=== PATIENT | male | born 1960 | race Caucasian/White ===

== ENCOUNTER 2017-05-18 12:26 | Emergency (ER) | payer MEDICARE ==
[2017-05-18 14:29] LABS: APPEARANCE CLEAR (CLEAR); BACTERIA MODERATE /hpf (NONE SEEN); BILIRUBIN NEGATIVE (NEGATIVE); COLOR DK YELLOW (YELLOW); EPITHELIAL CELLS 0-5 /hpf (0-5); GLUCOSE NEGATIVE (NEGATIVE); KETONE MODERATE mg/dL (NEGATIVE); NITRITE NEGATIVE (NEGATIVE); PROTEIN NEGATIVE (NEGATIVE); SPECIFIC GRAVITY 1.025 (1.005-1.020); UROBILINOGEN NORMAL (NORMAL); WHITE CELLS - URINE 0-5 /hpf (0-5)
[2017-05-18 14:30] LABS: MUCUS <1+ /lpf (NONE SEEN)
[2017-05-18 15:17] LABS: BASOPHILS 0.2 % (0-2); HEMATOCRIT 43.4 % (42.0-54.0); HEMOGLOBIN 14.8 g/dL (13.5-17.5); IMMATURE GRANULOCYTES 0.4 % (0-5); LYMPHOCYTES 16.8 % (15-50); MCH 31.5 pg (26.0-34.0); MCHC 34.1 g/dL (31.0-37.0); MCV 92.3 fL (80.0-100.0); MEAN PLATELET VOLUME 10.1 fL (7.4-10.4); NEUTROPHILS 68.6 % (40-80); PLATELET COUNT 279 10x3/uL (130-400); RDW 14.8 % (11.5-14.5); WBC 8.2 10x3/uL (4.8-10.8)
[2017-05-18 16:38] LABS: ALBUMIN 3.5 g/dL (3.4-5.0); ANION GAP 8.8 mmol/L (8-16); BILIRUBIN - TOTAL 0.23 mg/dL (0.2-1.3); CARBON DIOXIDE 26.3 mmol/L (21.0-32.0); CREATININE - SERUM 1.1 mg/dL (0.6-1.3); POTASSIUM - SERUM 4.1 mmol/L (3.5-5.1); PROTEIN - SERUM 7.1 g/dL (6.4-8.2)
== END 2017-05-18 18:07 | disposition home or self-care (01) ==
LOC: D.ER 12:26
PROVIDERS: Emergency Medicine
DX: N45.2 Orchitis (principal)

== ENCOUNTER 2017-08-19 16:53 | Emergency (ER) | payer MEDICARE | END 2017-08-19 19:08 | disposition home or self-care (01) | LOC: D.ER 16:53 | DX: M54.2 Cervicalgia (principal); M54.9 Dorsalgia, unspecified; M62.838 Other muscle spasm ==

== ENCOUNTER 2017-10-14 11:27 | Emergency (ER) | payer MEDICARE, MEDICAID ==
[2017-10-14 12:36] LABS: ALBUMIN 3.7 g/dL (3.4-5.0); ALKALINE PHOSPHATASE 88 U/L (46-116); ALT (SGPT) 16 U/L (10-68); BILIRUBIN - TOTAL 0.35 mg/dL (0.2-1.3); CALC OSMOLALITY 280 mosm/kg (275-300); CALCIUM 9.7 mg/dL (8.5-10.1); CARBON DIOXIDE 22.9 mmol/L (21.0-32.0); CHLORIDE - SERUM 106 mmol/L (98-107); CREATININE - SERUM 0.9 mg/dL (0.6-1.3); GLUCOSE 110 mg/dL (74-106); POTASSIUM - SERUM 4.2 mmol/L (3.5-5.1); PROTEIN - SERUM 7.2 g/dL (6.4-8.2); SODIUM 140 mmol/L (136-145); UREA NITROGEN 14 mg/dL (7-18); eGFR NON AFRICAN AMERICAN > 90 mL/min (90-120)
[2017-10-14 12:39] LABS: BASOPHILS 0.2 % (0-2); EOSINOPHILS 0.8 % (0-7); HEMATOCRIT 43.2 % (42.0-54.0); HEMOGLOBIN 14.2 g/dL (13.5-17.5); IMMATURE GRANULOCYTES 0.2 % (0-5); LYMPHOCYTES 25.5 % (15-50); MCH 32.1 pg (26.0-34.0); MCHC 32.9 g/dL (31.0-37.0); MCV 97.5 fL (80.0-100.0); MONOCYTES 8.8 % (2-11); NEUTROPHILS 64.5 % (40-80); PLATELET COUNT 302 10x3/uL (130-400); RBC 4.43 10x6/uL (4.20-6.10); RDW 15.2 % (11.5-14.5); WBC 6.2 10x3/uL (4.8-10.8)
[2017-10-14 13:34] LABS: APPEARANCE CLEAR (CLEAR); BILIRUBIN NEGATIVE (NEGATIVE); COLOR YELLOW (YELLOW); GLUCOSE NEGATIVE (NEGATIVE); KETONE NEGATIVE (NEGATIVE); NITRITE NEGATIVE (NEGATIVE); PROTEIN NEGATIVE (NEGATIVE); SPECIFIC GRAVITY 1.025 (1.005-1.020); UROBILINOGEN NORMAL (NORMAL)
[2017-10-14 13:35] LABS: BACTERIA FEW /hpf (NONE SEEN); CALCIUM OXALATE CRYSTALS 0-5 /hpf (NONE SEEN); EPITHELIAL CELLS 0-5 /hpf (0-5); MUCUS <1+ /lpf (NONE SEEN); RED CELLS - URINE 0-5 /hpf (0-5); WHITE CELLS - URINE RARE /hpf (0-5)
== END 2017-10-14 14:37 | disposition home or self-care (01) ==
LOC: D.ER 11:27
PROVIDERS: Family Medicine
DX: R10.9 Unspecified abdominal pain (principal)

== ENCOUNTER → 2019-06-24 11:33 | Outpatient (CLI) | payer MEDICARE ==
[2019-06-24 14:02] LABS: HEMATOCRIT 27.4 % (42.0-54.0); HEMOGLOBIN 8.4 g/dL (13.5-17.5); MCH 25.4 pg (26.0-34.0); MCHC 30.7 g/dL (31.0-37.0); MCV 82.8 fL (80.0-100.0); MEAN PLATELET VOLUME 9.1 fL (7.4-10.4); PLATELET COUNT 297 10x3/uL (130-400); RBC 3.31 10x6/uL (4.20-6.10); RDW 19.4 % (11.5-14.5)
[2019-06-24 14:16] LABS: CALC OSMOLALITY 276 mosm/kg (275-300); CALCIUM 8.4 mg/dL (8.5-10.1); CARBON DIOXIDE 29.4 mmol/L (21.0-32.0); CHLORIDE - SERUM 104 mmol/L (98-107); GLUCOSE 85 mg/dL (74-106); POTASSIUM - SERUM 4.7 mmol/L (3.5-5.1); SODIUM 138 mmol/L (136-145); UREA NITROGEN 18 mg/dL (7-18); VANCOMYCIN - TROUGH 8.7 ug/mL (10.0-20.0); eGFR NON AFRICAN AMERICAN 81 mL/min (90-120)
[2019-06-24 14:36] LABS: EOSINOPHILS 7 % (0-7); LYMPHOCYTES 12 % (15-50); MONOCYTES 18 % (2-11); NEUTROPHILS 63 % (40-80); PLATELET ESTIMATE NORMAL
== END | disposition home or self-care (01) ==
LOC: D.LABREF 11:33
PROVIDERS: ATTEND Orthopaedic Surgery
DX: M00.9 Pyogenic arthritis, unspecified (principal)

== ENCOUNTER → 2019-06-27 11:50 | Outpatient (CLI) | payer MEDICARE ==
[2019-06-27 12:18] LABS: HEMATOCRIT 30.8 % (42.0-54.0); HEMOGLOBIN 9.5 g/dL (13.5-17.5); MCH 26.1 pg (26.0-34.0); MCHC 30.8 g/dL (31.0-37.0); MCV 84.6 fL (80.0-100.0); PLATELET COUNT 325 10x3/uL (130-400); RBC 3.64 10x6/uL (4.20-6.10); RDW 19.5 % (11.5-14.5); WBC 7.4 10x3/uL (4.8-10.8)
[2019-06-27 12:28] LABS: ANION GAP 9.1 mmol/L (8-16); CALCIUM 8.4 mg/dL (8.5-10.1); CARBON DIOXIDE 28.6 mmol/L (21.0-32.0); CREATININE - SERUM 1.1 mg/dL (0.6-1.3); POTASSIUM - SERUM 3.7 mmol/L (3.5-5.1); VANCOMYCIN - TROUGH 17.9 ug/mL (10.0-20.0)
[2019-06-27 12:36] LABS: BASOPHILS 1 % (0-2); EOSINOPHILS 4 % (0-7); LYMPHOCYTES 21 % (15-50); MONOCYTES 15 % (2-11); NEUTROPHILS 58 % (40-80); PLATELET ESTIMATE NORMAL
== END | disposition home or self-care (01) ==
LOC: D.LABREF 11:50
PROVIDERS: ATTEND Orthopaedic Surgery
DX: T85.79XA Infection and inflammatory reaction due to other internal prosthetic devices, implants and grafts, initial encounter (principal)

== ENCOUNTER → 2019-07-05 11:42 | Outpatient (CLI) | payer MEDICARE ==
[2019-07-05 13:09] LABS: BASOPHILS 0.6 % (0-2); EOSINOPHILS 6.6 % (0-7); HEMATOCRIT 23.5 % (42.0-54.0); IMMATURE GRANULOCYTES 0.1 % (0-5); LYMPHOCYTES 19.7 % (15-50); MCH 25.6 pg (26.0-34.0); MCHC 29.4 g/dL (31.0-37.0); MEAN PLATELET VOLUME 9.7 fL (7.4-10.4); MONOCYTES 13.9 % (2-11); NEUTROPHILS 59.1 % (40-80); PLATELET COUNT 308 10x3/uL (130-400); RDW 19.3 % (11.5-14.5); WBC 6.7 10x3/uL (4.8-10.8)
[2019-07-05 13:21] LABS: CALC OSMOLALITY 278 mosm/kg (275-300); CALCIUM 8.4 mg/dL (8.5-10.1); CARBON DIOXIDE 26.4 mmol/L (21.0-32.0); CHLORIDE - SERUM 107 mmol/L (98-107); GLUCOSE 106 mg/dL (74-106); HEMOGLOBIN 6.9 g/dL (13.5-17.5); SODIUM 139 mmol/L (136-145); UREA NITROGEN 14 mg/dL (7-18); VANCOMYCIN - TROUGH 16.7 ug/mL (10.0-20.0); eGFR NON AFRICAN AMERICAN 81 mL/min (90-120)
== END | disposition home or self-care (01) ==
LOC: D.LABREF 11:42
PROVIDERS: ATTEND Orthopaedic Surgery
DX: T85.79XA Infection and inflammatory reaction due to other internal prosthetic devices, implants and grafts, initial encounter (principal)

== ENCOUNTER → 2019-07-11 10:46 | Outpatient (CLI) | payer MEDICARE ==
[2019-07-11 11:32] LABS: CALC OSMOLALITY 279 mosm/kg (275-300); CALCIUM 8.3 mg/dL (8.5-10.1); CARBON DIOXIDE 26.3 mmol/L (21.0-32.0); CHLORIDE - SERUM 107 mmol/L (98-107); CREATININE - SERUM 0.8 mg/dL (0.6-1.3); GLUCOSE 106 mg/dL (74-106); POTASSIUM - SERUM 3.8 mmol/L (3.5-5.1); SODIUM 141 mmol/L (136-145); UREA NITROGEN 10 mg/dL (7-18); VANCOMYCIN - TROUGH 16.2 ug/mL (10.0-20.0); eGFR NON AFRICAN AMERICAN > 90 mL/min (90-120)
[2019-07-11 11:37] LABS: BASOPHILS 0.8 % (0-2); EOSINOPHILS 5.8 % (0-7); HEMATOCRIT 27.7 % (42.0-54.0); HEMOGLOBIN 8.4 g/dL (13.5-17.5); LYMPHOCYTES 23.2 % (15-50); MCH 25.9 pg (26.0-34.0); MCHC 30.3 g/dL (31.0-37.0); MCV 85.5 fL (80.0-100.0); MEAN PLATELET VOLUME 9.5 fL (7.4-10.4); MONOCYTES 11.4 % (2-11); NEUTROPHILS 58.8 % (40-80); RBC 3.24 10x6/uL (4.20-6.10); RDW 19.1 % (11.5-14.5)
[2019-07-11 11:48] LABS: PLATELET COUNT 235 10x3/uL (130-400)
== END | disposition home or self-care (01) ==
LOC: D.LABREF 10:46
PROVIDERS: ATTEND Orthopaedic Surgery
DX: T85.79XA Infection and inflammatory reaction due to other internal prosthetic devices, implants and grafts, initial encounter (principal)